=== PATIENT | male | born 1965 | race Caucasian/White ===

== ENCOUNTER 2022-12-08 09:53 | Emergency (ER) | payer BC, SELFPAY ==
[2022-12-08 09:59] VITALS: BP 125/78; PULSE 79; RESP 20; TEMP 36.8; O2SAT 93; BMI 25.5
--- NOTE | 2022-12-08 10:05 | ECG_ITS ---
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
--- NOTE | 2022-12-08 10:05 | XR_ITS ---
[address] [address] Patient Name: VIOLET PORTILLO MRN: [id number] date: 1965 Sex: M Assigned Patient Location: ER Current Patient Location: ER Accession/Order Number: [id number] Exam Date: 12/08/2022 10:10 Report Date: 12/08/2022 10:46 At the request of: DADA SPEAR Procedure: XR chest 1V EXAM: XR chest 1V HISTORY: cp COMPARISON: 01/08/2022 TECHNIQUE: Frontal view of the chest. FINDINGS: No focal consolidations or pleural effusions. The lungs are hyperinflated compatible with COPD. Cardiac mediastinal silhouette is unremarkable. Thoracic spine spondylosis. XR/XR chest 1V IMPRESSION: No acute disease. COPD. Electronically authenticated by: CANDACE THAKUR Date: 12/08/2022 10:46
--- NOTE | 2022-12-08 10:13 | ED_ITS ---
HPI - Chest Pain General Chief Complaint: Chest Pain Stated Complaint: CHEST PAIN Time Seen by Provider: 12/08/22 10:04 Source: patient Mode of arrival: walk-in Limitations: no limitations History of Present Illness HPI narrative: The patient have history of smoking cigarettes 1 pack and a half every day is coming to the ER with 2 days history of left-sided chest pain, that is associated moving his left shoulder and taking a deep breath, he denies any fall or trauma but he mentioned that he was recently almost 4 days ago was doing some hard physical work The patient does have difficulty breathing with movement and his cough increased more than usual He had a productive cough as well and denying any fever chills any stomach pain diarrhea or any other concerns Related Data Home Medications Medication Instructions Recorded Confirmed tadalafil 20 mg tablet 20 mg PO DAILY PRN sexual activity 12/08/22 12/08/22 Previous Rx's Medication Instructions Recorded acetaminophen 650 mg 650 mg PO Q8H PRN pain #20 tabs 12/08/22 tablet,extended release (Tylenol 8 Hour) albuterol sulfate 90 mcg/actuation 1 inh inhalation Q6H PRN shortness 12/08/22 aerosol inhaler of breath or wheezing #6.7 grams azithromycin 250 mg tablet See Rx Instructions PO .COMPLEX #6 12/08/22 (Zithromax Z-Yuval) tabs guaifenesin 600 mg tablet, 600 mg PO BID PRN cough #10 tabs 12/08/22 extended release 12 hr (Mucinex) prednisone 50 mg tablet 50 mg PO DAILY 5 days #5 tabs 12/08/22 Allergies Allergy/AdvReac Type Severity Reaction Status Date / Time No Known Drug Allergies Allergy Verified 12/08/22 09:58 Review of Systems ROS Status of ROS 10 or more systems reviewed and unremarkable except as noted in history and below PFSH [facility] Medical History (Updated 12/08/22 @ 11:14 by Shania Gan MD) Surgical History (Updated 12/08/22 @ 10:07 by Jeff Roy) Social History Smoking status: Heavy tobacco smoker Exam Narrative Exam Narrative: Nurses notes and vital signs reviewed and patient is not hypoxic. General: Well-appearing and in no apparent distress. Skin: Warm, dry, no pallor noted. No rash. Head: Normocephalic, atraumatic. Neck: Supple, non-tender. Eye: Pupils are equal, round and EOMI. No scleral icterus. Ears, Nose, Mouth, and Throat: TM are clear, no nasal mucosal hypertrophy. Oral mucosa is moist, no posterior oropharynx erythema, uvula is mid-line Cardiovascular: Regular Rate and Rhythm without murmur, gallop or rub. Respiratory: No accessory muscle use or respiratory distress. Lungs are bilateral expiratory lung wheezes in both lung johnson Chest Wall: no tenderness Back: No midline thoracic or lumbar vertebral tenderness. No CVA tenderness Musculoskeletal: normal ROM, no calf or popliteal tenderness, no lower extremity edema/swelling GI: Abdomen is soft, non-distended. Normal bowel sounds. No masses appreciated. No tenderness to palpation. No rebound, guarding, or rigidity noted. Neurological: A&O x4. No cranial nerve dysfunction observed. No truncal ataxia. Moves all extremities. Sensation intact. Psychiatric: Cooperative and interactive. Normal mood and affect. Constitutional Vital Signs, click to edit/add: Last Vital Signs Temp 98.2 F 12/08/22 09:59 Pulse 55 L 12/08/22 10:42 Resp 12 12/08/22 10:42 BP 125/78 H 12/08/22 09:59 Pulse Ox 95 12/08/22 10:42 O2 Del Method Room Air 12/08/22 10:42 Course Vital Signs Vital signs: Vital Signs Temperature 98.2 F 12/08/22 09:59 Pulse Rate 79 12/08/22 09:59 Respiratory Rate 20 12/08/22 09:59 Blood Pressure 125/78 H 12/08/22 09:59 Pulse Oximetry 93 L 12/08/22 09:59 Oxygen Delivery Method Room Air 12/08/22 09:59 Temperature 98.2 F 12/08/22 09:59 Pulse Rate 55 L 12/08/22 10:42 Respiratory Rate 12 12/08/22 10:42 Blood Pressure 125/78 H 12/08/22 09:59 Pulse Oximetry 95 12/08/22 10:42 Oxygen Delivery Method Room Air 12/08/22 10:42 MDM - Chest Pain MDM Narrative Medical decision making narrative: EKG on presentation showing sinus rhythm with a heart rate of [address] elevation or depression Chest x-ray showed no acute pathology CBC and chemistry were within normal and the patient troponin was negative his presentation is likely secondary to atypical chest pain with COPD exacerbation as he was wheezing and he have a history of smoking cigarettes The patient was feeling much better after initial treatment he was discharged home with albuterol inhaler Tylenol prednisone and Z-Yuval and referred to his primary care doctor as outpatient The patient is to follow up with primary care physician in next 2-3 days or to return to the emergency department should any of the signs or symptoms worsen or new symptoms develop. The patient agrees with the following Diagnosis and Treatment plan and the patient will be discharged home. Lab Data Labs: Lab Results 12/08/22 Range/Units 10:10 WBC 5.2 (4.0-11.0) 10^3/uL RBC 4.37 L (4.70-6.10) 10^6/uL Hgb 14.4 (14.0-18.0) g/dL Hct 41.8 L (42.0-54.0) % MCV 95.7 H (80.0-94.0) fL MCH 33.0 (25.9-34.0) pg MCHC 34.4 (29.9-35.2) g/dL RDW 11.9 (11.0-15.0) % Plt Count 189 (150-450) 10^3/uL MPV 9.6 (9.5-13.5) fL Neut % (Auto) 67.7 (43.0-75.0) % Lymph % (Auto) 21.4 (20.5-60.0) % Towner % (Auto) 8.2 (1.7-12.0) % Eos % (Auto) 2.1 (0.9-7.0) % Baso % (Auto) 0.4 (0.2-2.0) % Neut # (Auto) 3.5 (1.4-6.5) 10^3/uL Lymph # (Auto) 1.1 L (1.2-3.8) 10^3/uL Towner # (Auto) 0.4 (0.3-0.8) 10^3/uL Eos # (Auto) 0.1 (0.0-0.7) 10^3/uL Baso # (Auto) 0.0 (0.0-0.1) 10^3/uL Abs Immat Gran (auto) 0.01 (0.00-0.03) 10^3/uL Imm/Tot Granulo (auto) 0.2 (0.0-0.5) % Sodium 139 (136-145) mmol/L Potassium 4.1 (3.5-5.1) mmol/L Chloride 104 (98-107) mmol/L Carbon Dioxide 30.3 (21.0-32.0) mmol/L Anion Gap 8.8 BUN 9.0 (7.0-18.0) mg/dL Creatinine 0.85 (0.70-1.30) mg/dL Est GFR ( Amer) >60 (>=60) Est GFR (Non-Af Amer) >60 (>=60) BUN/Creatinine Ratio 10.6 Glucose 135 H (74-106) mg/dL Calcium 8.6 (8.5-10.1) mg/dL Total Bilirubin 0.6 (0.2-1.0) mg/dL AST 16 (15-37) U/L ALT 12 L (16-63) U/L Alkaline Phosphatase 99 (46-116) U/L Troponin I High Sens 6.0 (4.0-76.1) pg/mL Total Protein 7.1 (6.4-8.2) g/dL Albumin 3.9 (3.4-5.0) g/dL Globulin 3.2 g/dL Albumin/Globulin Ratio 1.2 Discharge Plan Discharge Chief Complaint: Chest Pain Clinical Impression: Acute chest wall pain, Chest pain, pleuritic, COPD exacerbation Patient Disposition: Home, Self-Care Time of Disposition Decision: 11:11 Condition: Good Mode of Transportation: Private Vehicle Prescriptions / Home Meds: New prednisone 50 mg tablet 50 mg PO DAILY 5 Days Qty: 5 0RF guaifenesin [Mucinex] 600 mg tablet extended release 12hr 600 mg PO BID PRN (Reason: cough) Qty: 10 0RF albuterol sulfate 90 mcg/actuation HFA aerosol inhaler 1 inh inhalation Q6H PRN (Reason: shortness of breath or wheezing) Qty: 6.7 0RF azithromycin [Zithromax Z-Yuavl] 250 mg tablet See Rx Instructions .ROUTE .COMPLEX Qty: 6 0RF Rx Instructions: For 250 mg dose pack: take 500 mg today (day 1), then 250 mg for 4 days (days 2-5) acetaminophen [Tylenol 8 Hour] 650 mg tablet extended release 650 mg PO Q8H PRN (Reason: pain) Qty: 20 0RF No Action tadalafil 20 mg tablet 20 mg PO DAILY PRN (Reason: sexual activity) Instructions: Pleurisy (ED), Chest Wall Pain (ED) Stand Alone Forms: Portal Instructions Referrals: MIROSLAVA STOCKTON [Primary Care Provider] - 1 week Discharge Date/Time: 12/08/22 11:24
[2022-12-08] MEDS: KETOROLAC TROMETHAMINE 30 MG/ML VIAL 15 MG IVP (10:28)
[2022-12-08] MEDS: FAMOTIDINE/PF 20 MG/2 ML VIAL IV (10:28)
[2022-12-08] MEDS: METHYLPREDNISOLONE SOD SUCC PF 125 MG/2 ML VIAL IVP (10:28)
[2022-12-08 10:34] LABS: Basophils Percent Auto 0.4 % (0.2-2.0); Eosinophils Absolute Auto 0.1 10^3/uL (0.0-0.7); Eosinophils Percent Auto 2.1 % (0.9-7.0); Hematocrit 41.8 % (42.0-54.0); Hemoglobin 14.4 g/dL (14.0-18.0); Immature Granulocytes Abs Auto 0.01 10^3/uL (0.00-0.03); Immature Granulocytes Pct Auto 0.2 % (0.0-0.5); Lymphocytes Absolute Auto 1.1 10^3/uL (1.2-3.8); Lymphocytes Percent Auto 21.4 % (20.5-60.0); Mean Corpuscular HGB Conc 34.4 g/dL (29.9-35.2); Mean Corpuscular Volume 95.7 fL (80.0-94.0); Mean Platelet Volume 9.6 fL (9.5-13.5); Monocytes Absolute Auto 0.4 10^3/uL (0.3-0.8); Monocytes Percent Auto 8.2 % (1.7-12.0); Neutrophils Absolute Auto 3.5 10^3/uL (1.4-6.5); Neutrophils Percent Auto 67.7 % (43.0-75.0); Platelet Count 189 10^3/uL (150-450); Red Blood Count 4.37 10^6/uL (4.70-6.10); Red Cell Distribution Width 11.9 % (11.0-15.0); White Blood Count 5.2 10^3/uL (4.0-11.0)
[2022-12-08] MEDS: IPRATROPIUM/ALBUTEROL SULFATE 3 ML AMPUL.NEB IH (10:41)
[2022-12-08 10:42] VITALS: PULSE 55; RESP 12; O2SAT 95
[2022-12-08 10:52] LABS: Alanine Aminotransferase 12 U/L (16-63); Albumin Globulin Ratio 1.2; Albumin Level 3.9 g/dL (3.4-5.0); Alkaline Phosphatase 99 U/L (46-116); Anion Gap 8.8; Aspartate Amino Transferase 16 U/L (15-37); BUN Creatinine Ratio 10.6; Bilirubin Total 0.6 mg/dL (0.2-1.0); Calcium 8.6 mg/dL (8.5-10.1); Carbon Dioxide 30.3 mmol/L (21.0-32.0); Chloride 104 mmol/L (98-107); Estimated GFR (African America >60 (>=60); Estimated GFR (Non-African Ame >60 (>=60); Globulin 3.2 g/dL; Glucose 135 mg/dL (74-106); Potassium 4.1 mmol/L (3.5-5.1); Sodium 139 mmol/L (136-145); Total Protein 7.1 g/dL (6.4-8.2)
== END 2022-12-08 11:24 | disposition home or self-care (01) ==
PROVIDERS: Emergency Provider Emergency Medicine; PCP Internal Medicine
DX: J44.1 Chronic obstructive pulmonary disease with (acute) exacerbation (principal); R07.89 Other chest pain; R07.81 Pleurodynia; F17.210 Nicotine dependence, cigarettes, uncomplicated; Z79.899 Other long term (current) drug therapy
CPT/HCPCS: 36415; 71045; 80053; 84484; 85025; 93005; 94640; 96374; 96375; 99285; 99406; J2930